=== PATIENT | female | born 1940 | race Caucasian/White ===

== ENCOUNTER 2016-05-26 09:33 | Emergency (ER) | payer MEDICARE, MEDICAID ==
[~2016-05-26] VITALS: Ht 152.4 cm; Wt 54.9 kg
[~2016-05-26 09:33] MED LIST: ALBU6.7H INH; ALEN70TA7 PO; ALPR0.255 PO; ASPI-917 PO; ATOR10TA64 PO; DILT180C51 PO; DIPH25TA25 PO; FLUT12AE16 INH; LEVA0.633 IH; LEVO750T20 PO; METH4TAB3 PO; MULT-1243 PO; OMEP-122 PO; UMEC62.5 INH
[2016-05-26 09:34] VITALS: Ht 152.4 cm; Wt 54.9 kg
--- OUTSIDE RECORDS SUMMARY | 2016-05-26 09:37 | XMS REPORT | Continuity of Care Document ---
Author Author [facility] Organization [facility] Address Unknown Phone Unavailable Support Name Relationship Address Phone ANASTACIA WILHELM MD Caregiver [address] [place] [phone] ALEXSANDRA DOUGLAS MD Caregiver [address] [place] [address] [phone] ANITA GUNDERSON Next Of Kin [address] [place] [address] Insurance Providers Payer Name Policy Number Subscriber Name Relationship Medicare [id number] Marnie Gunderson 18 Self Shawna Dexter [employer] Plan [id number] Marnie Gunderson 18 Self Problems Medical Problems Problem Onset Date Status GASTROENTERITIS,VOMITING Unknown Active Exacerbation COPD Unknown Active Gastroenteritis Unknown Active Vomiting Unknown Active Medications Medication Dose Route Sig Days/Qty Instructions Order Date Discontinued Date Status Salmeterol Xinafoate/Fluticasone 1 Puff INH TWICE A DAY 12/29/0723/02 Discontinued Albuterol 1 Puff INH NEEDED 12/29/07 07/07/12 Discontinued Ipratropium/Albuterol Sulfate 1 Amp INH FOUR TIMES DAILY 12/29/07 Discontinued Lansoprazole 1 Cap PO TWICE A DAY 12/29/07 05/24/10 Discontinued [Xanax0.25 Mg] 1 Tab PO TWICE A DAY 12/29/07 Active Simvastatin 1 Tab PO BEDTIME 12/29/07 07/25/11 Discontinued Sertraline Hcl 0.5 Tab PO DAILY 12/29/07 05/23/10 Discontinued Alendronate Sodium 70 Mg PO WEEKLY 05/23/10 Active Omeprazole 20 Mg PO DAILY 05/23/10 Active Prednisone 20 Mg PO 05/24/10 07/25/11 Discontinued Cefuroxime Axetil 500 Mg PO TWICE A DAY 05/24/10 07/25/11 Discontinued Salmeterol Xinafoate/Fluticasone 1 INH TWICE A DAY 12/14/12 Active Levalbuterol Hcl 0.63 Mg IH THREE TIMES A DAY 12/14/12 Active Diltiazem Hcl 180 Mg PO DAILY 12/14/12 Active Tiotropium [place] 18 Mcg IH DAILY 12/14/12 Active Albuterol Sulfate 2 Puff INH THREE TIMES A DAY For RESPIRATORY DISTRESS 04/15/14 Active Multivits-Min/FA/Lycopene/Lut 04/15/14 Active Aspirin 325 Mg PO DAILY 04/15/14 Active Prednisone 60 Mg PO DAILY 5 Days Take daily each morning 04/15/14 Active Social History Social History Problem Response Recorded Date/Time Chewing Tobacco Status No 04/15/2014 10:46pm Hx Substance Use No 04/15/2014 10:46pm Hx Alcohol Use No 04/15/2014 10:46pm Has the pt used tobacco in the last 12 months No 07/09/2012 12:06pm Tobacco Usage none 04/15/2014 10:31pm Query Response Start Date Stop Date Smoking Status Former smoker Hospital Discharge Instructions No hospital discharge instructions. Plan of Care No plan of care. Functional Status Query Response Date Recorded Physical Hygiene Self April 15, 2014 10:46pm Disabilities None April 15, 2014 10:46pm Devices Used None April 15, 2014 10:46pm Dressing Self April 15, 2014 10:46pm Ambulation Self April 15, 2014 10:46pm Diet Self April 15, 2014 10:46pm Mental Status Alert April 15, 2014 11:47pm Disabilities None April 15, 2014 10:46pm Devices Used None April 15, 2014 10:46pm Physical Hygiene Self April 15, 2014 10:46pm Dressing Self April 15, 2014 10:46pm Ambulation Self April 15, 2014 10:46pm Diet Self April 15, 2014 10:46pm Allergies, Adverse Reactions, Alerts Allergen Type Severity Reaction Status Last Updated escitalopram oxalate Allergy Intermediate RASH Active 04/15/14 Morphine Allergy Severe Active 04/15/14 Codeine Allergy Intermediate SEVERE HEADACHE Active 04/15/14 Propoxyphene Allergy Unknown FEVER, HIVES Active 04/15/14 Acetaminophen Allergy Unknown Active 04/15/14 Immunizations Name Given Type Hx Influenza Vaccination Y dec 2011 Historical Hx Pneumococcal Vaccination Y 2011 ocober Historical Hx Influenza Vaccination Y dec 2011 Historical Vital Signs Acute Vital Signs Vital Response Date/Time Temperature (Fahrenheit) 97.2 deg F (96.8 - 99.1) Temperature (Calculated Celsius) 36.05364 degrees C (36.0 - 37.3) Pulse Rate (adult) 65 bpm (60 - 100) Respiratory Rate 20 breaths/min (10 - 20) O2 Sat by Pulse Oximetry 98 % (90 - 100) Oxygen Flow Rate 4 L/min Blood Pressure 124/69 mm Hg Height 5 ft 0 in Weight 145 lb Body Mass Index 28.0 kg/m^2 Results Test Source Date Result Interp. Ref. Range Comments Alanine Aminotransferase (ALT/SGPT) April 15, 2014 10:53pm 26 U/L N 9 -52 Albumin April 15, 2014 10:53pm 4.1 G/DL N 3.5-5.0 Albumin/Globulin Ratio April 15, 2014 10:53pm 1.6 RATIO N 1.1-2.2 Alkaline Phosphatase April 15, 2014 10:53pm 91 U/L N 38-126 Amylase Level May 11, 2013 10:11am 56 U/L N 30-110 Anion Gap April 15, 2014 10:53pm 9 MEQ/L N 5-15 Arterial Blood Base Excess July 15, 2012 10:25am 10.5 MMOL/L H -2.0-2.0 Arterial Blood HCO3 July 15, 2012 10:25am 36 MEQ/L H 22-26 Arterial Blood Oxygen Content July 15, 2012 10:25am 4 - Arterial Blood Oxygen Saturation July 15, 2012 10:25am 92.0 % L 95.0- 98.0 Arterial Blood Partial Pressure CO2 July 15, 2012 10:25am 49 MMHG H 34- 45 Arterial Blood Total CO2 July 15, 2012 10:25am 37.2 MEQ/L H 23-27 Arterial Blood pH July 15, 2012 10:25am 7.470 H 7.350-7.450 Arterial Blood pO2 at Patient Temp July 15, 2012 10:25am 60 MMHG L 80- 100 Aspartate Amino Transf (AST/SGOT) April 15, 2014 10:53pm 23 U/L N 14- 36 B-Type Natriuretic Peptide December 03, 2010 5:10am 43 PG/ML N 15-100 BUN/Creatinine Ratio April 15, 2014 10:53pm 20 RATIO N 6-26 Band Neutrophils # November 27, 2010 4:35am 0.1 T/MM3 - Band Neutrophils % November 27, 2010 4:35am 1.0 % N 0-6 Basophils # (Auto) April 15, 2014 10:53pm 0.0 T/MM3 N 0-0.2 Basophils # (Manual) July 20, 2008 12:05pm 0.0 T/MM3 N 0-0.2 Basophils % (Manual) July 20, 2008 12:05pm 0.0 % N 0-2 Basophils (%) (Auto) April 15, 2014 10:53pm 0.4 % N 0-2 Blood Urea Nitrogen April 15, 2014 10:53pm 14.0 MG/DL N 7-17 Calcium Level April 15, 2014 10:53pm 9.3 MG/DL N 8.4-10.2 Calculated Osmolality April 15, 2014 10:53pm 269 MOSM/KG N 261-280 Carbon Dioxide Level April 15, 2014 10:53pm 34 MEQ/L H 22-30 Chemistry Specimen Hemolysis April 15, 2014 10:53pm < 15 0-25 0-25 : No Hemolysis.26-70: Slight Hemolysis - can falsely elevate K and Urine Protein. 71-285: Moderate Hemolysis - can falsely elevate K, Troponin I, CA 19-9, PTH, CSF GLucose, and Urine Protein, and can falsely decrease Phenytoin. 286-999: Gross Hemolysis - can falsely elevate K, Troponin I, CA 19-9, PTH, CSF Glucose, and Urine Protine, and can falsely decrease Phenytoin. Recommend specimen recollection. Chloride Level April 15, 2014 10:53pm 96 MEQ/L L 98-107 Conjugated Bilirubin July 07, 2012 5:35pm 0.00 MG/DL N 0.00-0.30 Creatinine April 15, 2014 10:53pm 0.7 MG/DL N 0.7-1.2 D-Dimer July 07, 2012 5:35pm < 150 NG/ML 0-230 <224 NG/ML= PRESUMPTIVE NEGATIVE FOR PE OR DVT>224 NG/ML=ADDITIONAL EVALUATION FOR PE OR DVT RECOMMENDED Differential Total Cells Counted May 25, 2010 5:47am 100 % - EKG November 04, 2007 4:23pm Complete - Eosinophils # (Auto) April 15, 2014 10:53pm 0.1 T/MM3 N 0-0.5 Eosinophils # (Manual) July 20, 2008 12:05pm 0.0 T/MM3 N 0-0.5 Eosinophils % (Manual) July 20, 2008 12:05pm 0.0 % N 0-4 Eosinophils (%) (Auto) April 15, 2014 10:53pm 1.1 % N 0-4 Erythrocyte Sedimentation Rate November 04, 2007 4:22pm 11 MM/HR - COMMENT THIS IS A NEW PT. PLEASE DRAW SOON Ferritin December 17, 2011 5:15am 26.0 NG/ML N 11-264 Globulin April 15, 2014 10:53pm 2.5 G/DL N 2.4-3.6 Glomerular Filtration Rate Calc April 15, 2014 10:53pm 82 - Glucose Level April 15, 2014 10:53pm 107 MG/DL N 65-110 Hematocrit April 15, 2014 10:53pm 33.7 % L 36-46 Hemoglobin April 15, 2014 10:53pm 10.3 GM/DL L 12-16 Icterus Index April 15, 2014 10:53pm < 2 0-7 Immature Granulocyte # (Auto) April 15, 2014 10:53pm 0.02 T/MM3 N 0.00-0.03 Immature Granulocyte % (Auto) April 15, 2014 10:53pm 0.2 % N 0.0-0.5 Influenza Type A Antigen May 24, 2010 12:00am Negative - Negative for Flu A protein antigen. Assay sensitivity isbetween 65-83%. A negative result does not exclude influenza virus infection. "Influenza FA" may be ordered if clinical presentation warrants confirmatory testing. Influenza Type B Antigen May 24, 2010 12:00am Negative - Negative for Flu B protein antigen. Assay sensitivity isbetween 65-83%. A negative result does not exclude influenza virus infection. "Influenza FA" may be ordered if clinical presentation warrants confirmatory testing. Iron Level December 17, 2011 5:15am 27 UG/DL L 37-170 Lab Scanned Report June 02, 2013 4:04pm LAB TEST FORM REQUEST [id number] - Lipase May 11, 2013 10:11am 43 U/L N 23-300 Lymphocytes # (Auto) April 15, 2014 10:53pm 2.5 T/MM3 N 1-4.8 Lymphocytes # (Manual) November 27, 2010 4:35am 0.9 T/MM3 L 1-4.8 Lymphocytes % (Manual) November 27, 2010 4:35am 12.0 % L 23-45 Lymphocytes (%) (Auto) April 15, 2014 10:53pm 29.6 % N 23-45 Magnesium Level July 11, 2012 4:20am 2.1 MG/DL N 1.6-2.3 Mean Corpuscular Hemoglobin April 15, 2014 10:53pm 27.7 UUG N 26-34 Mean Corpuscular Hemoglobin Concent April 15, 2014 10:53pm 30.6 GM/DL L 31-37 Mean Corpuscular Volume April 15, 2014 10:53pm 90.6 UM3 N 80-100 Mean Platelet Volume April 15, 2014 10:53pm 8.9 UM3 L 9.4-12.4 Monocytes # (Auto) April 15, 2014 10:53pm 0.8 T/MM3 N 0-0.8 Monocytes # (Manual) November 27, 2010 4:35am 0.1 T/MM3 N 0-0.8 Monocytes % (Manual) November 27, 2010 4:35am 1.0 % N 0-9.0 Monocytes (%) (Auto) April 15, 2014 10:53pm 10.1 % H 0-9.0 YB-Baw-R-Type Natriuretic Peptide April 15, 2014 10:53pm 189 PG/ML H 0-175 Rule in cut points: <50 years old=450; 50-75 years old=900; >75 years old=1800; When utilizing ProBNP rule-in cut points, adjustment for impaired renal function is typically not required. Neutrophils # (Auto) April 15, 2014 10:53pm 4.9 T/MM3 N 1.8-7.7 Neutrophils # (Manual) November 27, 2010 4:35am 6.4 T/MM3 N 1.8-7.7 Neutrophils % (Manual) November 27, 2010 4:35am 86.0 % H 33-66 Neutrophils (%) (Auto) April 15, 2014 10:53pm 58.6 % N 33-66 Oxygen Delivery Method (LAB) July 15, 2012 10:25am Nasal cannula,liters - Platelet Count April 15, 2014 10:53pm 300 T/MM3 N 130-400 Potassium Level April 15, 2014 10:53pm 3.7 MEQ/L N 3.6-5 Procalcitonin April 15, 2014 10:53pm < 0.05 NG/ML - PCT </=0.5 ng/ mL - sepsis not likely;PCT >0.5 and </=2 ng/mL - sepsis possible; PCT >2 ng/mL - sepsis likely; PCT >/=10 ng/mL - systemic inflammatory response - sepsis or septic shock highly indicated. Prothromb Time International Ratio November 23, 2010 7:45pm 0.99 N 0.86 -1.10 THERAPUTIC RANGE=2.00-3.00 FOR ANTI-THROMBOSIS THERAPUTIC RANGE=2.50- 3.50 FOR IMPLANTED VALVE RDW Standard Deviation April 15, 2014 10:53pm 41.7 FL N 36.9-50.2 Red Blood Count April 15, 2014 10:53pm 3.72 M/MM3 L 4.00-5.20 Sodium Level April 15, 2014 10:53pm 139 MEQ/L N 134-144 Thyroid Stimulating Hormone (TSH) November 04, 2007 4:22pm 1.04 MIU/ML N 0.47-4.68 Thyroxine (T4) November 04, 2007 4:22pm 8.4 UG/DL N 4.5-11.5 Total Bilirubin April 15, 2014 10:53pm 0.40 MG/DL N 0.20-1.30 Total Iron Binding Capacity December 17, 2011 5:15am 245 UG/DL L 261-497 Total Protein April 15, 2014 10:53pm 6.6 G/DL N 6.3-8.2 Troponin I April 15, 2014 10:53pm < 0.012 ng/ml 0-0.12 Turbidity April 15, 2014 10:53pm < 20 0-20 Unconjugated Bilirubin July 07, 2012 5:35pm 0.20 MG/DL N 0.00-1.10 Urinalysis Comment December 14, 2012 1:31pm Microscopic not ind. - Has specimen been collected/obtained? Y Urine Bacteria July 07, 2012 7:45pm Negative - Has specimen been collected/obtained? Y Urine Bilirubin December 14, 2012 1:31pm Negative - Has specimen been collected/obtained? Y Urine Blood December 14, 2012 1:31pm Negative - Has specimen been collected/obtained? Y Urine Collection Type December 14, 2012 1:31pm Cleancatch-midstream - Has specimen been collected/obtained? Y Urine Color December 14, 2012 1:31pm Yellow - Has specimen been collected/obtained? Y Urine Glucose (UA) December 14, 2012 1:31pm Negative - Has specimen been collected/obtained? Y Urine Ketones December 14, 2012 1:31pm Negative - Has specimen been collected/obtained? Y Urine Leukocyte Esterase December 14, 2012 1:31pm Negative - Has specimen been collected/obtained? Y Urine Microscopic Not Indicated December 16, 2011 8:16pm Not indicated - Has specimen been collected/obtained? Y Urine Nitrite December 14, 2012 1:31pm Negative - Has specimen been collected/obtained? Y Urine Protein December 14, 2012 1:31pm Negative - Has specimen been collected/obtained? Y Urine RBC July 07, 2012 7:45pm None seen /HPF - Has specimen been collected/obtained? Y Urine Specific [place] December 14, 2012 1:31pm 1.010 L - Has specimen been collected/obtained? Y Urine Squamous Epithelial Cells July 20, 2008 2:15pm None seen - Urine Turbidity December 14, 2012 1:31pm Clear - Has specimen been collected/obtained? Y Urine Urobilinogen December 14, 2012 1:31pm Normal EU/DL - Has specimen been collected/obtained? Y Urine WBC July 07, 2012 7:45pm None seen /HPF - Has specimen been collected/obtained? Y Urine pH December 14, 2012 1:31pm 7.0 - Has specimen been collected/ obtained? Y Venous Blood Lactate April 15, 2014 10:47pm 0.7 MMOL/L N 0.6-2.2 White Blood Count April 15, 2014 10:53pm 8.3 T/MM3 N 4.5-11.0 Blood Culture Blood December 14, 2012 11:22am NO GROWTH AFTER 5 DAYS Gram Stain Sputum-Expectorated Sputum July 09, 2012 8:50am Name: MARNIE GUNDERSON Unit #: [id number] : 1940 Sex: F Loc / Svc: ED DOS: 04/15/14 Signed Report #: [id number] DIAGNOSTIC IMAGING REPORT TYPE OF EXAM: CHEST, PA & LATERAL Dictated By: DAYNA HOPE MD INDICATION: ITS.REASON: cough, dyspnea CHEST 2-VIEWS UPRIGHT (PA & LAT): COMPARISON: December 14, 2012 Findings: The lungs are stable in appearance without new focal airspace consolidation. There is some chronic scarring in the lower lobes overlying the lower thoracic spine appreciated on the lateral view which appears unchanged. Hyperinflation. There is no pleural effusion or pneumothorax. The heart size, pulmonary vascularity and mediastinal contours are unchanged. IMPRESSION: Stable appearance of the chest without acute cardiopulmonary disease. Hyperinflation suggesting COPD. . Procedures No known history of procedures. Encounters Encounter Location Date/Time Departed Emergency Room [facility] 04/15/14 10:01pm Departed Emergency Room [facility] 02/19/14 5:54pm Recent Diagnosis
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
--- OUTSIDE RECORDS SUMMARY | 2016-05-26 09:38 | XMS REPORT | Continuity of Care Document ---
Author Author [facility] Organization [facility] Address Unknown Phone Unavailable Support Name Relationship Address Phone ERNESTINE ROJAS MD Caregiver [address] [place] [phone] ALEXSANDRA DOUGLAS MD Caregiver [address] [place] [place] [phone] ANITA GUNDERSON (EX) Next Of Kin [address] [place] [address] Insurance Providers Payer Name Policy Number Subscriber Name Relationship Medicare [id number] Marnie Gunderson 18 Self Shawna [place] [employer] Plan [id number] Marnie Gunderson 18 Self Problems Medical Problems Problem Onset Date Status GASTROENTERITIS,VOMITING Unknown Active Exacerbation COPD Unknown Active Gastroenteritis Unknown Active Vomiting Unknown Active Medications Medication Dose Route Sig Days/Qty Instructions Order Date Discontinued Date Status Salmeterol Xinafoate/Fluticasone 1 Puff INH TWICE A DAY 12/29/0723/02 Discontinued Albuterol 1 Puff INH NEEDED 12/29/07 07/07/12 Discontinued Aspirin 325 Mg PO DAILY 12/29/07 Active Ipratropium/Albuterol Sulfate 1 Amp INH FOUR TIMES DAILY 12/29/07 Discontinued Lansoprazole 1 Cap PO TWICE A DAY 12/29/07 05/24/10 Discontinued [Xanax0.25 Mg] 1 Tab PO TWICE A DAY 12/29/07 Active Simvastatin 1 Tab PO BEDTIME 12/29/07 07/25/11 Discontinued Sertraline Hcl 0.5 Tab PO DAILY 12/29/07 05/23/10 Discontinued Calcium Carbonate 1 Tab PO DAILY 05/23/10 Active Alendronate Sodium 70 Mg PO WEEKLY 05/23/10 Active Omeprazole 20 Mg PO DAILY 05/23/10 Active Prednisone 20 Mg PO 05/24/10 07/25/11 Discontinued Cefuroxime Axetil 500 Mg PO TWICE A DAY 05/24/10 07/25/11 Discontinued Tiotropium O[place]olt 18 Mcg IH DAILY HOLD FOR 30 DAYS 07/25/11 Active Prednisone 10 Mg PO DAILY 07/09/12 Active Cefuroxime Axetil 500 Mg PO TWICE A DAY 12/14/12 Active Salmeterol Xinafoate/Fluticasone TWICE A DAY 12/14/12 Active Levalbuterol Hcl 0.63 Mg IH THREE TIMES A DAY 12/14/12 Active Diltiazem Hcl 180 Mg PO DAILY 12/14/12 Active Magnesium 400 Mg PO DAILY 12/14/12 Active Tiotropium [place] 18 Mcg IH DAILY 12/14/12 Active Social History Social History Problem Response Recorded Date/Time Hx Substance Use No 12/14/2012 10:49am Hx Alcohol Use No 12/14/2012 10:49am Has the pt used tobacco in the last 12 months No 07/09/2012 12:06pm Hospital Discharge Instructions No hospital discharge instructions. Plan of Care No plan of care. Functional Status No functional status results. Allergies, Adverse Reactions, Alerts Allergen Type Severity Reaction Status Last Updated escitalopram oxalate Allergy Intermediate RASH Active 12/14/12 Morphine Allergy Severe Active 12/14/12 Codeine Allergy Intermediate SEVERE HEADACHE Active 12/14/12 Propoxyphene Allergy Unknown FEVER, HIVES Active 12/14/12 Immunizations Name Given Type Hx Influenza Vaccination Y dec 2011 Historical Hx Pneumococcal Vaccination Y 2011 ocober Historical Hx Influenza Vaccination Y dec 2011 Historical Vital Signs Acute Vital Signs Vital Response Date/Time Temperature (Fahrenheit) 96.8 deg F (96.8 - 99.1) Temperature (Calculated Celsius) 36.31197 degrees C (36.0 - 37.3) Pulse Rate (adult) 80 bpm (60 - 100) Respiratory Rate 20 breaths/min (10 - 20) O2 Sat by Pulse Oximetry 97 % (90 - 100) Oxygen Flow Rate 4 L/min Blood Pressure 157/68 mm Hg Height (Feet) 5 feet Weight (Kilograms) 62.3 kg Body Mass Index (BMI) 26.0 Results Test Source Date Result Interp. Ref. Range Comments Alanine Aminotransferase (ALT/SGPT) May 11, 2013 10:11am 29 U/L N 9- 52 Albumin May 11, 2013 10:11am 4.2 G/DL N 3.5-5.0 Albumin/Globulin Ratio May 11, 2013 10:11am 1.6 RATIO N 1.1-2.2 Alkaline Phosphatase May 11, 2013 10:11am 78 U/L N 38-126 Amylase Level May 11, 2013 10:11am 56 U/L N 30-110 Anion Gap May 11, 2013 10:11am 9 MEQ/L N 5-15 Arterial Blood Base [...] July 15, 2012 10:25am 7.470 H 7.350-7.450 Aspartate Amino Transf (AST/SGOT) May 11, 2013 10:11am 28 U/L N 14-36 B-Type Natriuretic Peptide December 03, 2010 5:10am 43 PG/ML N 15-100 BUN/Creatinine Ratio May 11, 2013 10:11am 20 RATIO N 6-26 Band Neutrophils # November 27, 2010 4:35am 0.1 T/MM3 - Band Neutrophils % November 27, 2010 4:35am 1.0 % N 0-6 Basophils # (Auto) December 14, 2012 11:22am 0.0 T/MM3 N 0-0.2 Basophils # (Manual) July 20, 2008 12:05pm 0.0 T/MM3 N 0-0.2 Basophils % (Manual) July 20, 2008 12:05pm 0.0 % N 0-2 Basophils (%) (Auto) December 14, 2012 11:22am 0.1 % N 0-2 Blood Urea Nitrogen May 11, 2013 10:11am 16.0 MG/DL N 7-17 Calcium Level May 11, 2013 10:11am 8.8 MG/DL N 8.4-10.2 Calculated Osmolality May 11, 2013 10:11am 272 MOSM/KG N 261-280 Carbon Dioxide Level May 11, 2013 10:11am 33 MEQ/L H 22-30 Chloride Level May 11, 2013 10:11am 99 MEQ/L N 98-107 Conjugated Bilirubin July 07, 2012 5:35pm 0.00 MG/DL N 0.00-0.30 Creatinine May 11, 2013 10:11am 0.8 MG/DL N 0.7-1.2 D-Dimer July 07, 2012 5:35pm < 150 NG/ML 0-230 <224 NG/ML= PRESUMPTIVE NEGATIVE FOR PE OR DVT>224 NG/ML=ADDITIONAL EVALUATION FOR PE OR DVT RECOMMENDED Differential Total Cells Counted May 25, 2010 5:47am 100 % - Eosinophils # (Auto) December 14, 2012 11:22am 0.0 T/MM3 N 0-0.5 Eosinophils # (Manual) July 20, 2008 12:05pm 0.0 T/MM3 N 0-0.5 Eosinophils % (Manual) July 20, 2008 12:05pm 0.0 % N 0-4 Eosinophils (%) (Auto) December 14, 2012 11:22am 0.1 % N 0-4 Erythrocyte Sedimentation Rate November 04, 2007 4:22pm 11 MM/HR - COMMENT THIS IS A NEW PT. PLEASE DRAW SOON Ferritin December 17, 2011 5:15am 26.0 NG/ML N 11-264 Globulin May 11, 2013 10:11am 2.6 G/DL N 2.4-3.6 Glucose Level May 11, 2013 10:11am 107 MG/DL N 65-110 Hematocrit December 14, 2012 11:22am 40.8 % N 36-46 Hemoglobin December 14, 2012 11:22am 13.0 GM/DL N 12-16 Influenza Type A Antigen May 24, 2010 [...] 17, 2011 5:15am 27 UG/DL L 37-170 Lipase May 11, 2013 10:11am 43 U/L N 23-300 Lymphocytes # (Auto) December 14, 2012 11:22am 1.0 T/MM3 N 1-4.8 Lymphocytes # (Manual) November 27, 2010 4:35am 0.9 T/MM3 L 1-4.8 Lymphocytes % (Manual) November 27, 2010 4:35am 12.0 % L 23-45 Lymphocytes (%) (Auto) December 14, 2012 11:22am 10.1 % L 23-45 Magnesium Level July 11, 2012 4:20am 2.1 MG/DL N 1.6-2.3 Mean Corpuscular Hemoglobin December 14, 2012 11:22am 27.6 UUG N 26-34 Mean Corpuscular Hemoglobin Concent December 14, 2012 11:22am 31.9 GM/DL N 31-37 Mean Corpuscular Volume December 14, 2012 11:22am 86.6 UM3 N 80-100 Mean Platelet Volume December 14, 2012 11:22am 8.8 UM3 L 9.4-12.4 Monocytes # (Auto) December 14, 2012 11:22am 0.5 T/MM3 N 0-0.8 Monocytes # (Manual) November 27, 2010 4:35am 0.1 T/MM3 N 0-0.8 Monocytes % (Manual) November 27, 2010 4:35am 1.0 % N 0-9.0 Monocytes (%) (Auto) December 14, 2012 11:22am 5.1 % N 0-9.0 Neutrophils # (Auto) December 14, 2012 11:22am 8.2 T/MM3 H 1.8-7.7 Neutrophils # (Manual) November 27, 2010 4:35am 6.4 T/MM3 N 1.8-7.7 Neutrophils % (Manual) November 27, 2010 4:35am 86.0 % H 33-66 Neutrophils (%) (Auto) December 14, 2012 11:22am 84.4 % H 33-66 Platelet Count December 14, 2012 11:22am 308 T/MM3 N 130-400 Potassium Level May 11, 2013 10:11am 4.2 MEQ/L N 3.6-5 Prothromb Time International Ratio November 23, 2010 7:45pm 0.99 N 0.86 -1.10 THERAPUTIC RANGE=2.00-3.00 FOR ANTI-THROMBOSIS THERAPUTIC RANGE=2.50- 3.50 FOR IMPLANTED VALVE RDW Standard Deviation December 14, 2012 11:22am 40.3 FL N 36.9-50.2 Red Blood Count December 14, 2012 11:22am 4.71 M/MM3 N 4.00-5.20 Sodium Level May 11, 2013 10:11am 141 MEQ/L N 134-144 Thyroid Stimulating Hormone (TSH) November 04, 2007 4:22pm 1.04 MIU/ML N 0.47-4.68 Thyroxine (T4) November 04, 2007 4:22pm 8.4 UG/DL N 4.5-11.5 Total Bilirubin May 11, 2013 10:11am 0.50 MG/DL N 0.20-1.30 Total Iron Binding Capacity December 17, 2011 5:15am 245 UG/DL L 261-497 Total Protein May 11, 2013 10:11am 6.8 G/DL N 6.3-8.2 Troponin I May 11, 2013 10:11am < 0.012 ng/ml 0-0.12 Unconjugated Bilirubin July 07, 2012 5:35pm 0.20 MG/DL N 0.00-1.10 Urine Bacteria July 07, 2012 7:45pm Negative [...] Has specimen been collected/obtained? Y Urine Specific [place] December 14, 2012 1:31pm 1.010 L - [...] - Has specimen been collected/ obtained? Y White Blood Count December 14, 2012 11:22am 9.7 T/MM3 N 4.5-11.0 Chemistry Specimen Hemolysis May 11, 2013 10:11am < 15 0-25 0-25: No Hemolysis.26-70: Slight Hemolysis - can falsely elevate K and Urine Protein. 71-285: Moderate Hemolysis - can falsely elevate K, Troponin I, CA 19-9, PTH, CSF GLucose, and Urine Protein, and can falsely decrease Phenytoin. 286-999: Gross Hemolysis - can falsely elevate K, Troponin I, CA 19-9, PTH, CSF Glucose, and Urine Protine, and can falsely decrease Phenytoin. Recommend specimen recollection. Oxygen Delivery Method (LAB) July 15, 2012 10:25am Nasal cannula,liters - Urinalysis Comment December 14, 2012 1:31pm Microscopic not ind. - Has specimen been collected/obtained? Y Lab Scanned Report June 02, 2013 4:04pm LAB TEST FORM REQUEST [id number] - EKG November 04, 2007 4:23pm Complete - Turbidity May 11, 2013 10:11am < 20 0-20 Glomerular Filtration Rate Calc May 11, 2013 10:11am 71 - Immature Granulocyte # (Auto) December 14, 2012 11:22am 0.02 T/MM3 N 0.00 -0.03 Immature Granulocyte % (Auto) December 14, 2012 11:22am 0.2 % N 0.0-0.5 Arterial Blood pO2 at Patient Temp July 15, 2012 10:25am 60 MMHG L 80- 100 Venous Blood Lactate December 14, 2012 11:22am 1.3 MMOL/L N 0.6-2.2 Procalcitonin December 14, 2012 11:22am < 0.05 NG/ML - PCT </=0.5 ng/ mL - sepsis not likely;PCT >0.5 and </=2 ng/mL - sepsis possible; PCT >2 ng/mL - sepsis likely; PCT >/=10 ng/mL - systemic inflammatory response - sepsis or septic shock highly indicated. Icterus Index May 11, 2013 10:11am < 2 0-7 NA-Awx-B-Type Natriuretic Peptide December 14, 2012 11:22am 327 PG/ML H 0 -175 Rule in cut points: <50 years old=450; 50-75 years old=900; >75 years old=1800; When utilizing ProBNP rule-in cut points, adjustment for impaired renal function is typically not required. Urine Microscopic Not Indicated December 16, 2011 8:16pm Not indicated - Has specimen been collected/obtained? Y Blood Culture Blood December 14, 2012 11:22am NO GROWTH AFTER 5 DAYS Gram Stain Sputum-Expectorated Sputum July 09, 2012 8:50am Procedures No known history of procedures. Encounters Encounter Location Date/Time Departed Emergency Room [facility] 02/19/14 5:54pm Recent Diagnosis
--- OUTSIDE RECORDS SUMMARY | 2016-05-26 09:39 | XMS REPORT | Continuity of Care Document ---
Author Author [facility] Organization [facility] Address Unknown Phone Unavailable Allergies Medications Problems Procedures Results Encounters ACCT No. Visit Date/Time Discharge Status Pt. Type Provider Facility Loc./Unit Complaint [id number] 05/27/2013 10:02:00 05/27/2013 23 :59:59 CLS Outpatient [id number] 05/11/2013 09:10:00 05/11/2013 23 :59:59 CLS Outpatient [id number] 04/03/2013 08:19:00 04/03/2013 23 :59:59 CLS Outpatient [id number] 02/09/2013 09:48:00 02/09/2013 23 :59:59 CLS Outpatient [id number] 01/02/2013 09:00:00 01/02/2013 23 :59:59 CLS Outpatient
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
--- OUTSIDE RECORDS SUMMARY | 2016-05-26 09:39 | XMS REPORT | Referral Summary ---
Author Author [facility], [facility] Address Unknown Phone Unavailable Care Team Providers Care Molding Press Operator Name Role Phone Nancy Lofton Primary Care Physician [phone] Encounter Date(s): 05/02/16 - 05/02/16 [facility] [place] [id number] Discharge Diagnosis: CAP (community acquired pneumonia) Discharge Diagnosis: Requires supplemental oxygen Discharge Diagnosis: CAD (coronary artery disease) Discharge Diagnosis: Gastritis Discharge Diagnosis: COPD, severe Discharge Diagnosis: High cholesterol Discharge Diagnosis: Arthritis Discharge Diagnosis: Lung nodule Discharge Diagnosis: Hypertension Discharge Disposition: 01-Home or Self Care Attending Physician: Alvin Lofton MD Admitting Physician: Alvin Lofton MD Vital Signs Most recent to 1 oldest [Reference Range]: Peripheral Pulse 78 bpm Rate [60-100 bpm] (05/02/16 11:06 AM) Blood Pressure 120/70 mmHg [90-140/60-90 mmHg] (05/02/16 11:06 AM) SpO2 92 % (05/02/16 11:06 AM) Problem List Condition Effective Dates Status [...] Hypertension(Confirm Active ed) Irritable bowel Resolved disease(Confirmed) Lung Active nodule(Confirmed) Osteoporosis(Confirm Resolved ed) Pneumonia(Confirmed) Active COPD, Active severe(Confirmed) Sinus Active infection(Confirmed) Stroke/TIA(Confirmed Active ) Ulcer(Confirmed) Active Allergies, Adverse Reactions, Alerts Substance Reaction Severity Status codeine Active Escitalopram Oxalate Unknown Active morphine Active pravastatin Active propoxyphene Unknown Active hydrochloride simvastatin Active Medications Advair HFA 115 mcg-21 mcg/inh inhalation aerosol See Instructions, INHALE 2 PUFFS BY MOUTH TWICE DAILY, # 12 g, eRx: [facility] ([facility]) [id number], INHALE 2 PUFFS BY MOUTH TWICE DAILY Start Date: 01/31/15 Status: Ordered Aspirin Enteric Coated 325 mg, Oral, Daily, 1 tab, 0 Refill(s) Start Date: 08/16/13 Status: Ordered atorvastatin 10 mg oral tablet See Instructions, TAKE 1 TABLET BY MOUTH EVERY DAY, # 30 tabs, eRx: [facility] ([facility]) [id number] Start Date: 04/16/16 Status: Ordered Benadryl 10 mg, Oral, Daily, 0 Refill(s) Start Date: 04/06/15 Status: Ordered Cardizem CD 180 mg/24 hours oral capsule, extended release See Instructions, TAKE 1 CAPSULE (180MG) BY ORAL ROUTE EVERY DAY, # 90 caps, eRx : [facility] ([facility]) , TAKE 1 CAPSULE (180MG) BY ORAL [...] 30 MINUTES, # 12 unknown unit, eRx: [facility] ([facility]) [id number], (4PK); TAKE 1 TABLET BY MOUTH IN [...] FOUR TIMES DAILY, # 144 mL, eRx: [facility] ([facility]) [id number], USE ONE VIAL PER NEBULIZER FOUR TIMES DAILY Start Date: 05/02/16 Status: Ordered levalbuterol 0.63 mg/3 mL inhalation solution See Instructions, USE ONE VIAL PER NEBULIZER FOUR TIMES DAILY, # 144 mL, eRx: [facility] ([facility]) [id number] Start Date: 04/04/16 Status: Ordered Levaquin 750 mg oral tablet 750 mg 1 tabs, Oral, q24hr, X 6 days, 0 Refill(s) Start Date: 05/01/16 Stop Date: 05/06/16 Status: Ordered Medrol Dosepak 4 mg oral tablet 1 packets, Oral, Once, as directed on package labeling, # 21 tabs, 0 Refill(s) Start Date: 05/01/16 Stop Date: 05/06/16 Status: Ordered PriLOSEC OTC 20 mg oral delayed release tablet See Instructions, 1 TABS ORAL DAILY, # 90 tabs, eRx: [facility] ([facility]) [id number] , 1 TABS ORAL DAILY Start Date: 03/07/15 Status: Ordered ProAir HFA 90 mcg/inh inhalation aerosol See Instructions, 2 PUFFS INHALATION TID,PRN: NEEDED FOR WHEEZING, # 3 unknown unit, eRx: [facility] ([facility]) [id number], 2 PUFFS INHALATION TID,PRN: NEEDED FOR WHEEZING [...] Patient Education Author: Alvin Lofton MD Date: Family Medicine Arthritis, Nonspecific Arthritis is inflammation of a joint. This usually means pain, redness, warmth or swelling are present. One or more joints may be involved. There are a number of types of arthritis. Your caregiver may not be able to tell what type of arthritis you have right away. CAUSES The most common cause of arthritis is the wear and tear on the joint ( osteoarthritis). This causes damage to the cartilage, which can break down over time. The knees, hips, back and neck are most often affected by this type of arthritis. Other types of arthritis and common causes of joint pain include: Sprains and other injuries near the joint. Sometimes minor sprains and injuries cause pain and swelling that develop hours later. Rheumatoid arthritis. This affects hands, feet and knees. It usually affects both sides of your body at the same time. It is often associated with chronic ailments, fever, weight loss and general weakness. Crystal arthritis. Gout and pseudo gout can cause occasional acute severe pain, redness and swelling in the foot, ankle, or knee. Infectious arthritis. Bacteria can get into a joint through a break in overlying skin. This can cause infection of the joint. Bacteria and viruses can also spread through the blood and affect your joints. Drug, infectious and allergy reactions. Sometimes joints can become mildly painful and slightly swollen with these types of illnesses. SYMPTOMS Pain is the main symptom. Your joint or joints can also be red, swollen and warm or hot to the touch. You may have a fever with certain types of arthritis, or even feel overall ill. The joint with arthritis will hurt with movement. Stiffness is present with some types of arthritis. DIAGNOSIS Your caregiver will suspect arthritis based on your description of your symptoms and on your exam. Testing may be needed to find the type of arthritis: Blood and sometimes urine tests. X-ray tests and sometimes CT or MRI scans. Removal of fluid from the joint (arthrocentesis) is done to check for bacteria, crystals or other causes. Your caregiver (or a specialist) will numb the area over the joint with a local anesthetic, and use a needle to remove joint fluid for examination. This procedure is only minimally uncomfortable. Even with these tests, your caregiver may not be able to tell what kind of arthritis you have. Consultation with a specialist (orbitread operator) may be helpful. TREATMENT Your caregiver will discuss with you treatment specific to your type of arthritis. If the specific type cannot be determined, then the following general recommendations may apply. Treatment of severe joint pain includes: Rest. Elevation. Anti-inflammatory medication (for example, ibuprofen) may be prescribed. Avoiding activities that cause increased pain. Only take reie-bfy-tbjnlnd or prescription medicines for pain and discomfort as recommended by your caregiver. Cold packs over an inflamed joint may be used for 10 to 15 minutes every hour. Hot packs sometimes feel better, but do not use overnight. Do not use hot packs if you are diabetic without your caregiver's permission. A cortisone shot into arthritic joints may help reduce pain and swelling. Any acute arthritis that gets worse over the next 1 to 2 days needs to be looked at to be sure there is no joint infection. Long-term arthritis treatment involves modifying activities and lifestyle to reduce joint stress jarring. This can include weight loss. Also, exercise is needed to nourish the joint cartilage and remove waste. This helps keep the muscles around the joint strong. HOME CARE INSTRUCTIONS Do not take aspirin to relieve pain if gout is suspected. This elevates uric acid levels. Only take hagh-trr-daqkllw or prescription medicines for pain, discomfort or fever as directed by your caregiver. Rest the joint as much as possible. If your joint is swollen, keep it elevated. Use crutches if the painful joint is in your leg. Drinking plenty of fluids may help for certain types of arthritis. Follow your caregiver's dietary instructions. Try low-impact exercise such as: Swimming. Water aerobics. Biking. Walking. Morning stiffness is often relieved by a warm shower. Put your joints through regular juwbm-sc-xroecp. SEEK MEDICAL CARE IF: You do not feel better in 24 hours or are getting worse. You have side effects to medications, or are not getting better with treatment. SEEK IMMEDIATE MEDICAL CARE IF: You have a fever. You develop severe joint pain, swelling or redness. Many joints are involved and become painful and swollen. There is severe back pain and/or leg weakness. You have loss of bowel or bladder control. This information is not intended to replace advice given to you by your health care provider. Make sure you discuss any questions you have with your health care provider. Document Released: 04/04/2005 Document Revised: 03/18/2015 Document Reviewed: [employer] Interactive Patient Education 2016 [employer] No follow up information was provided. Extracted from: Title: Office Visit Note Author: Alvin Lofton MD Date: 05/02/16 Assessment/Plan 1.CAD (coronary artery disease) This issue was reviewed, appears stable, and current therapy continued except as mentioned. Appropriate lab was reviewed from the most recent appropriate entry and lab was ordered if needed in the cpoe/nursing orders, and follow up recommended generally in 90 days and no later then six months. 2.COPD, severe This issue was reviewed, appears stable, and current therapy continued except as mentioned. Appropriate lab was reviewed from the most recent appropriate entry and lab was ordered if needed in the cpoe/nursing orders, and follow up recommended generally in 90 days and no later then six months. Has nebulizer at home. 3.Gastritis The patient's issue is nearly or completely resolved. There is no further issues or testing desired by them at this time. 4.High cholesterol This issue was reviewed, appears stable, and current therapy continued except as mentioned. Appropriate lab was reviewed from the most recent appropriate entry and lab was ordered if needed in the cpoe/nursing orders, and follow up recommended generally in 90 days and no later then six months. Arthritis Seeing Dr. Hsu. Hip joint injection offered in [facility] by Dr. Hsu. I suggest that she defer that at this time. CAP (community acquired pneumonia) The patient's issue is nearly or completely resolved. There is no further issues or testing desired by them at this time. Has abx and steroids. The patient's outside physician records were reviewed. Any pertinent outside records, lab, and xrays were also reviewed if available. Hypertension This issue was reviewed, appears stable, [...] been no chest pain, chest pressure, soa/miramontes. Lung nodule We discussed several options for treatment for this condition. The patient declined any changes or other treatments at this time. Consult or Chest CT discussed and declined for now by her. Requires supplemental oxygen This issue was reviewed, appears stable, and current therapy continued except as mentioned. Appropriate lab was reviewed from the most recent appropriate entry and lab was ordered if needed in the cpoe/nursing orders, and follow up recommended generally in 90 days and no later then six months.
--- OUTSIDE RECORDS SUMMARY | 2016-05-26 09:39 | XMS REPORT | Continuity of Care Document ---
Author Author [facility] Organization [facility] Address Unknown Phone Unavailable Support Name Relationship Address Phone JUSTINORTEGA TOMAS Caregiver [address] [place] [address] Unavailable YANIRA TAO MD Caregiver [address] [place] [address] Unavailable BRITTANI CREWS Next Of Kin [address] [place] [address] Insurance Providers Guarantor Allyson Gunderson Address [address] [facility] [address] [place] [address] Email DENIED [address] [facility] Plan Policy Number [id number] Subscriber's Name Allyson Gunderson Relationship 18 Self Effective Date 15 Expiration Date 16 Payer Medicare Policy Number [id number] Subscriber's Name Allyson Gunderson Relationship 18 Self Effective Date 05 Advance Directives Directive Response Recorded Date/Time Advanced Directives Type Living Will DPOA for Healthcare 04/30/16 8:45am Chief Complaint and Reason for Visit Chief Complaint Dyspnea/Respdistress Reason for Visit Pneumonia Problems Active Problems Medical Problem Onset Date Status Contusion of left hand Unknown Acute Contusion of scalp Unknown Acute Dyspnea Unknown Acute Exacerbation COPD Unknown Acute GASTROENTERITIS,VOMITING Unknown Acute Gastroenteritis Unknown Acute Hypoxia Unknown Acute Knee pain, right Unknown Acute Vomiting Unknown Acute Past Problems Medical Problem Onset Date Chronic obstructive airway disease Unknown Pneumonia Unknown Upper respiratory infection Unknown Medications Current Home Medications Medication Dose Units Route Directions Days Qty Instructions Start Date Albuterol Sulfate (Proventil Hfa 90 Mcg/Actuation) 200 Puff/6.7 G Inha 2 Puff Inhalation Four Times Daily as needed for Shortness Of Air/Wheezing 12/25/15 Alendronate Sodium (Fosamax) 70 Mg Tablet 70 Mg Oral Weekly 05/23 Alprazolam 0.25 Mg Tablet 0.25 Mg Oral Twice A Day as needed for Anxiety 06/28/14 Aspirin (Aspirin Ec) 325 Mg Tablet.dr 325 Mg Oral Daily 04/30/16 Atorvastatin Calcium 10 Mg Tablet 10 Mg Oral Bedtime 12/25/15 Diltiazem Hcl (Cartia Xt) 180 Mg Capsule 180 Mg Oral Daily Diphenhydramine Hcl 25 Mg Tablet 25 Mg Oral Bedtime 12/25/15 Fluticasone/Salmeterol (Advair Hfa 115-21 Mcg Inhaler) 12 Gm Hfa.aer.ad 2 Puff Inhalation Twice A Day 05/14/15 Levalbuterol Hcl (Xopenex) 0.63 Mg/3 Ml Solution 1 Vial Inhalation Four Times Daily 12/14/12 Levofloxacin (Levaquin) 750 Mg Tablet 1 Tab Oral Daily for Pneumonia 6 Days 04/30/16 Methylprednisolone (Medrol) 4 Mg Tab.ds.pk 4 Mg Oral As Directed 1 04/30/16 Multivits-Min/Fa/Lycopene/Lut (Centrum Silver Tablet) 1 Each Tablet 1 Tab Oral Qd 04/30/16 Omeprazole 20 Mg Tablet. 20 Mg Oral Daily 06/28/14 Umeclidinium Mckee (Incruse Ellipta) 62.5 Mcg Blst.w.dev 1 Puff Inhalation Daily 12/25/15 Past Home Medications Medication Directions Ordered Status Albuterol 17 Gm Aerosol, 1 Puff Inhalation As Needed 12/29/07 Discontinued Cefuroxime Axetil (Cefuroxime) 500 Mg Tablet, 500 Mg Oral Twice A Day Discontinued Ipratropium/Albuterol Sulfate (Duoneb 2.5-0.5 Mg/3 Ml Soln) 3 Ml Ampul.neb, 1 Amp Inhalation Four Times Daily 12/29/07 Discontinued Lansoprazole (Prevacid) 30 Mg Capsule.dr, 1 Cap Oral Twice A Day 12/29/07 Discontinued Levofloxacin (Levaquin) 750 Mg Tablet, 1 Tab Oral Daily for Pneumonia Discontinued Prednisone 20 Mg Tablet, 60 Mg Oral Daily 04/15/14 Discontinued Prednisone 20 Mg Tablet, 20 Mg Oral 05/24/10 Discontinued Salmeterol Xinafoate/Fluticasone (Advair 250/50) 28 Puff/Disk Inhaler, 1 Puff Inhalation Twice A Day 12/29/07 Discontinued Sertraline Hcl (Zoloft) 50 Mg Tablet, 0.5 Tab Oral Daily 12/29/07 Discontinued Simvastatin (Zocor) 40 Mg Tablet, 1 Tab Oral Bedtime 12/29/07 Discontinued Social History Social History Problem Response Recorded Date/Time Onset Date Status Hx Substance Use No 04/30/2016 11:13am Not Applicable Not Applicable Hx Alcohol Use No 04/30/2016 11:13am Not Applicable Not Applicable Has the pt used tobacco in the last 12 months No 06/28/2014 4:39pm Not Applicable Not Applicable Tobacco Usage none 04/15/2014 10:31pm Not Applicable Not Applicable Query Response Start Date Stop Date Smoking Status Former smoker Hospital Discharge Instructions No hospital discharge instructions. Plan of Care Discharge Date 04/30/16 11:50am Disposition 01 DISCHARGED HOME, SELF-CARE Condition at Discharge Improved Instructions/Education Provided Pneumonia (ED) Prescriptions See Medication Section Referrals YANIRA TAO MD Order Date: 1 Day Address: [address] [place] [address] [place] [phone] Note: Care Plan and Goals Physician Care Plan Problem: 1. Pneumonia 2. Shortness of Breath Goal: 1. Follow up with primary care provider in 1 day for follow-up 2. Continue home medications including Home Oxygen and Nebulizer Treatments 3. Return to the ER with with worsening symptoms Instructions: 1. Take medications and follow care plan as discussed/written Functional Status No functional status results. Allergies, Adverse Reactions, Alerts Allergen Type Severity Reaction Status Last Updated escitalopram oxalate Allergy Intermediate RASH Active 12/25/15 Penicillin Allergy Unknown Active 12/25/15 Morphine Allergy Severe Active 12/25/15 Codeine Allergy Intermediate SEVERE HEADACHE Active 12/25/15 Propoxyphene Allergy Unknown FEVER, HIVES Active 12/25/15 Acetaminophen Allergy Unknown Active 12/25/15 Immunizations Query Response on File Recorded Date/Time Hx Influenza Vaccination Y 201306/30/14 2:58am Hx Pneumococcal Vaccination Y 201106/30/14 2:58am Hx Tetanus, Diptheria, Pertussis UNKNOWN 06/28/14 1:33pm Hx Influenza Vaccination Y 201306/30/14 2:58am Hx Tetanus Diptheria UNKNOWN 06/28/14 1:33pm Hx Tetanus, Diptheria, Pertussis UNKNOWN 06/28/14 1:33pm DTaP Vaccine History 201404/30/16 11:13am Influenza Vaccine Hx 201504/30/16 11:13am Vital Signs Acute Vital Signs Vital Response Date/Time Temperature (Fahrenheit) 98.4 deg F (96.8 - 99.1) 04/30/2016 11:50am Temperature (Calculated Celsius) 36.09844 degrees C (36.0 - 37.3) 04/30/2016 11:50am Pulse Rate (adult) 68 bpm (60 - 100) 04/30/2016 11:50am Respiratory Rate 20 breaths/min (10 - 20) 04/30/2016 11:50am O2 Sat by Pulse Oximetry 100 % (90 - 100) 04/30/2016 11:50am Oxygen Flow Rate 5.00 L/min 04/30/2016 11:50am Blood Pressure 135/61 mm Hg 04/30/2016 11:50am Height (Feet) 5 feet 04/30/2016 8:45am Height (Inches) 0 inches 04/30/2016 8:45am Weight (Kilograms) 54.400 kg 04/30/2016 8:45am Body Mass Index (BMI) 23.0 04/30/2016 8:45am Results Laboratory Results Test Name Result Units Flags Reference Collection Date/Time Result Date/ Time Comments White Blood Count 6.8 T/MM3 4.5-11.0 04/30/2016 9:47am 04/30/2016 10: 00am Red Blood Count 3.66 M/MM3 L 4.00-5.20 04/30/2016 9:47am 04/30/2016 10: 00am Hemoglobin 10.1 GM/DL L 12-16 04/30/2016 9:47am 04/30/2016 10:00am Hematocrit 33.3 % L 36-46 04/30/2016 9:47am 04/30/2016 10:00am Mean Corpuscular Volume 91.0 UM3 80-100 04/30/2016 9:47am 04/30/2016 10 :00am Mean Corpuscular Hemoglobin 27.6 UUG 26-34 04/30/2016 9:47am 2016 10:00am Mean Corpuscular Hemoglobin Concent 30.3 GM/DL L 31-37 04/30/2016 9:47am 04/30/2016 10:00am RDW Standard Deviation 41.5 FL 36.9-50.2 04/30/2016 9:47am 04/30/2016 10:00am Platelet Count 289 T/MM3 130-400 04/30/2016 9:47am 04/30/2016 10:00am Mean Platelet Volume 8.7 UM3 L 9.4-12.4 04/30/2016 9:47am 04/30/2016 10: 00am Neutrophils % (Manual) 64.0 % 33-66 04/30/2016 9:47am 04/30/2016 10: 21am Band Neutrophils % 5.0 % 0-6 04/30/2016 9:47am 04/30/2016 10:21am Lymphocytes % (Manual) 28.0 % 23-45 04/30/2016 9:47am 04/30/2016 10: 21am Monocytes % (Manual) 1.0 % 0-9.0 04/30/2016 9:47am 04/30/2016 10:21am Eosinophils % (Manual) 2.0 % 0-4 04/30/2016 9:47am 04/30/2016 10:21am Band Neutrophils # 0.3 T/MM3 04/30/2016 9:47am 04/30/2016 10:21am Absolute Neutrophils (Manual) 4.4 T/MM3 1.8-7.7 04/30/2016 9:47am 04/30 10:21am Lymphocytes # (Manual) 1.9 T/MM3 1-4.8 04/30/2016 9:47am 04/30/2016 10: 21am Monocytes # (Manual) 0.1 T/MM3 0-0.8 04/30/2016 9:47am 04/30/2016 10: 21am Eosinophils # (Manual) 0.1 T/MM3 0-0.5 04/30/2016 9:47am 04/30/2016 10: 21am Red Cell Morphology Comment NORMAL 04/30/2016 9:47am 04/30/2016 10: 21am Icterus Index < 2 0-7 04/30/2016 9:47am 04/30/2016 10:04am Chemistry Specimen Hemolysis < 15 0-25 04/30/2016 9:47am 04/30/2016 10:04am 0-25: Specimen Exhibited No Hemolysis. Turbidity < 20 0-20 04/30/2016 9:47am 04/30/2016 10:04am Sodium Level 133 MEQ/L L 134-144 04/30/2016 9:47am 04/30/2016 10:04am Potassium Level 3.6 MEQ/L 3.6-5 04/30/2016 9:47am 04/30/2016 10:04am Chloride Level 99 MEQ/L 98-107 04/30/2016 9:47am 04/30/2016 10:04am Carbon Dioxide Level 31 MEQ/L H 22-30 04/30/2016 9:47am 04/30/2016 10: 04am Anion Gap 3 MEQ/L L 5-15 04/30/2016 9:47am 04/30/2016 10:04am Blood Urea Nitrogen 13.0 MG/DL 7-17 04/30/2016 9:47am 04/30/2016 10: 04am Creatinine 0.5 MG/DL L 0.7-1.2 04/30/2016 9:47am 04/30/2016 10:04am BUN/Creatinine Ratio 26 RATIO 6-26 04/30/2016 9:47am 04/30/2016 10: 04am Glomerular Filtration Rate Calc 120 04/30/2016 9:47am 04/30/2016 10 :04am Glucose Level 103 MG/DL 65-110 04/30/2016 9:47am 04/30/2016 10:04am Calculated Osmolality 256 MOSM/KG L 261-280 04/30/2016 9:47am 2016 10:04am Calcium Level 8.4 MG/DL 8.4-10.2 04/30/2016 9:47am 04/30/2016 10:04am Troponin I < 0.012 ng/ml 0-0.12 04/30/2016 9:47am 04/30/2016 10:16am Troponin values with a difference of 55% increase from orginal troponin value represent a true biological DELTA value. (%increase Calc=Orginal Troponin value, divided by subsequent Troponin value, multiplied by 100) Name: ALLYSON GUNDERSON Unit #: [id number] : 1940 Sex: F Admit Date: Loc / Svc: ED Discharge Date: DIAGNOSTIC IMAGING REPORT Report #: [id number] [facility] [place] INDICATION: ITS.REASON: cough PROCEDURE: CHEST 2-VIEWS UPRIGHT (PA \T\ LAT) Encounter: Initial COMPARISON: Portable chest radiographs from 05/14/2015 and 06/28/2014 FINDINGS: A 15 mm left upper lobe pulmonary nodule with adjacent linear density has developed since the reference examinations. There is patchy alveolar opacity in the right base posterior laterally. Pulmonary hyperaeration indicative of an element of COPD. Small left lower lobe calcified granuloma. Pleural spaces clear. Heart unenlarged. No pulmonary vascular engorgement. Trachea midline. Degenerative changes of the spine and surgical clips of cholecystectomy. IMPRESSION: 1. Emergence of a 15 mm pulmonary nodule in left upper lobe; CT recommended. 2. Right lower lobe pneumonic infiltrate, consistent with pneumonia. 3. Evidence of underlying chronic obstructive pulmonary disease. 2. Evidence of prior infectious granulomatous disease. . Procedures No known history of procedures. Encounters Encounter Location Arrival/Admit Date Discharge/Depart Date Attending Provider Departed Emergency Room [facility] 04/30/16 8:41am 04/30/16 11: 50am ORTEGA ANDERSON DO Recent Diagnosis
--- OUTSIDE RECORDS SUMMARY | 2016-05-26 09:40 | XMS REPORT | Referral Summary ---
Author Author [facility] Organization [facility] Address Unknown Phone Unavailable Care Team Providers Care Lodging House Keeper Name Role Phone Kirsty Nancy Primary Care Physician [phone] Encounter VC Date(s): 04/19/16 - 04/19/16 [facility] [place] [address] Discharge Diagnosis: Redness of left eye Discharge Disposition: 01-Home or Self Care Attending Physician: Conchita Recinos PA-C Admitting Physician: Conchita Recinos PA-C Vital Signs Most recent to 1 oldest [Reference Range]: Temperature Tympanic 36.4 degC [36.6-38.1 degC] *LOW* (04/19/16 9:06 AM) Peripheral Pulse 73 bpm Rate [60-100 bpm] (04/19/16 9:06 AM) Blood Pressure 154/80 mmHg [90-140/60-90 mmHg] *HI* (04/19/16 9:06 AM) SpO2 100 % (04/19/16 9:06 AM) Problem List Condition Effective Dates Status [...] MOUTH TWICE DAILY, # 12 g, eRx: [facility] [id number], INHALE 2 PUFFS BY MOUTH TWICE DAILY Start Date: 01/31/15 Status: Ordered Aspirin Enteric Coated 325 mg, Oral, Daily, 1 tab, 0 Refill(s) Start Date: 08/16/13 Status: Ordered atorvastatin 10 mg oral tablet See Instructions, TAKE 1 TABLET BY MOUTH EVERY DAY, # 30 tabs, eRx: [facility] [id number] Start Date: 04/16/16 Status: Ordered Benadryl 10 mg, Oral, Daily, 0 Refill(s) Start Date: 04/06/15 Status: Ordered Cardizem CD 180 mg/24 hours oral capsule, extended release See Instructions, TAKE 1 CAPSULE (180MG) BY ORAL ROUTE EVERY DAY, # 90 caps, eRx : Carena [id number], TAKE 1 CAPSULE (180MG) BY ORAL ROUTE [...] 30 MINUTES, # 12 unknown unit, eRx: [facility] [id number], (4PK); TAKE 1 TABLET BY MOUTH IN [...] FOUR TIMES DAILY, # 144 mL, eRx: [facility] [id number] Start Date: 04/04/16 Status: Ordered PriLOSEC OTC 20 mg oral delayed release tablet See Instructions, 1 TABS ORAL DAILY, # 90 tabs, eRx: [facility] [id number] , 1 TABS ORAL DAILY Start Date: 03/07/15 Status: Ordered ProAir HFA 90 mcg/inh inhalation aerosol See Instructions, 2 PUFFS INHALATION TID,PRN: NEEDED FOR WHEEZING, # 3 unknown unit, eRx: [facility] [id number], 2 PUFFS INHALATION TID,PRN: NEEDED FOR WHEEZING [...] Plan Extracted from: Title: Office Visit Note- L red eye Author: Conchita Recinos PA-C Date : 04/19/16 Assessment/Plan Redness of left eye My suspicion is a subconjunctival hemorrhage or hyphema, however, given her pain and vision changes, I would like her to see her household cook today. Sees Dr. Juan Alston. I called his office, and he is not in, but the gas meter repair supervisor is going to call him to see if he will come in to the office to see her. Dr. Alston actually called me personally, and I discussed the case with him. He will see her this AM in office. Ordered: Office Visit Level 3 Est [id number]
--- NOTE | 2016-05-26 09:48 | NUR ---
DR DR NORIEGA IN ROOM.
[2016-05-26] MEDS ORDERED: NORMAL SALINE 1,000 ML IV ONE (09:57)
[2016-05-26] MEDS ORDERED: ASPIRIN 81 MG CHEWABLE TABLET PO ONE (10:00)
[2016-05-26] MEDS ORDERED: NITROGLYCERIN 0.4 MG SUBLINGUAL TABLET SL PRN (10:00)
[2016-05-26] MEDS ORDERED: FLUT16SP EA NOSTRIL (10:01)
[2016-05-26] MEDS ORDERED: CYAN10006 IM (10:01)
--- OUTSIDE RECORDS SUMMARY | 2016-05-26 10:11 | XMS REPORT | Continuity of Care Document ---
Author Author [facility] Organization [facility] Address Unknown Phone Unavailable Support Name Relationship Address Phone ANASTACIA WILHELM MD Caregiver [address] [place] [phone] ALEXSANDRA DOUGLAS MD Caregiver [address] [place] [address] [phone] ANITA GUNDERSON Next Of Kin [address] [place] [address] Insurance Providers Payer Name Policy Number Subscriber Name Relationship Medicare [id number] Marnie Gunderson 18 Self Shawna [employer] Plan [id number] Marnie Gunderson 18 Self Problems Medical Problems [...] 180 Mg PO DAILY 12/14/12 Active Tiotropium [place] 18 Mcg IH DAILY 12/14/12 Active Albuterol [...] F (96.8 - 99.1) Temperature (Calculated Celsius) 36.38361 degrees C (36.0 - 37.3) Pulse Rate [...] 02, 2013 4:04pm LAB TEST FORM REQUEST [id number] - Lipase May 11, 2013 10:11am 43 [...] 15, 2014 10:53pm 10.1 % H 0-9.0 UY-Lxe-F-Type Natriuretic Peptide April 15, 2014 10:53pm 189 [...] Has specimen been collected/obtained? Y Urine Specific [place] December 14, 2012 1:31pm 1.010 L - [...] 2012 8:50am Name: MARNIE GUNDERSON Unit #: [id number] : 1940 Sex: F Loc / Svc: ED DOS: 04/15/14 Signed Report #: [id number] DIAGNOSTIC IMAGING REPORT TYPE OF EXAM: CHEST, [...] Encounters Encounter Location Date/Time Departed Emergency Room [facility] 04/15/14 10:01pm Departed Emergency Room [facility] 02/19/14 5:54pm Recent Diagnosis
--- OUTSIDE RECORDS SUMMARY | 2016-05-26 10:12 | XMS REPORT | Continuity of Care Document ---
Author Author [facility] Organization [facility] Address Unknown Phone Unavailable Support Name Relationship Address Phone ERNESTINE ROJAS MD Caregiver [address] [phone] ALEXSANDRA DOUGLAS MD Caregiver [address] [place] [phone] ANITA GUNDERSON (EX) Next Of Kin [address] [place] [address] Insurance Providers Payer Name Policy Number Subscriber Name Relationship Medicare [id number] Marnie Gunderson 18 Self Shawna [employer] Plan [id number] Marnie Gunderson 18 Self Problems Medical Problems [...] TWICE A DAY 05/24/10 07/25/11 Discontinued Tiotropium [place] 18 Mcg IH DAILY HOLD FOR 30 DAYS 07/25/11 Active Prednisone 10 Mg PO DAILY 07/09/12 Active Cefuroxime Axetil 500 Mg PO TWICE A DAY 12/14/12 Active Salmeterol Xinafoate/Fluticasone TWICE A DAY 12/14/12 Active Levalbuterol Hcl 0.63 Mg IH THREE TIMES A DAY 12/14/12 Active Diltiazem Hcl 180 Mg PO DAILY 12/14/12 Active Magnesium 400 Mg PO DAILY 12/14/12 Active Tiotropium [place] 18 Mcg IH DAILY 12/14/12 Active Social [...] F (96.8 - 99.1) Temperature (Calculated Celsius) 36.11249 degrees C (36.0 - 37.3) Pulse Rate [...] Has specimen been collected/obtained? Y Urine Specific [place] December 14, 2012 1:31pm 1.010 L - [...] 02, 2013 4:04pm LAB TEST FORM REQUEST [id number] - EKG November 04, 2007 4:23pm Complete [...] May 11, 2013 10:11am < 2 0-7 TS-Krm-K-Type Natriuretic Peptide December 14, 2012 11:22am 327 [...] Encounters Encounter Location Date/Time Departed Emergency Room [facility] 02/19/14 5:54pm Recent Diagnosis
--- NOTE | 2016-05-26 10:13 | NUR ---
STATUS PT STATES PAIN IS UNCHANGED, PT LIFTS R ARM ACROSS CHEST AND REACHES TO LEFT AND REPORTS SAME PAIN.
--- OUTSIDE RECORDS SUMMARY | 2016-05-26 10:13 | XMS REPORT | Continuity of Care Document ---
Author Author [facility] Organization [facility] Address Unknown Phone Unavailable Allergies Medications Problems Procedures Results Encounters ACCT No. Visit Date/Time Discharge Status Pt. Type Provider Facility Loc./Unit Complaint [id number] 05/27/2013 10:02:00 05/27/2013 23 :59:59 CLS Outpatient [id number] 05/11/2013 09:10:00 05/11/2013 23 :59:59 CLS Outpatient [id number] 04/03/2013 08:19:00 04/03/2013 23 :59:59 CLS Outpatient [id number] 02/09/2013 09:48:00 02/09/2013 23 :59:59 CLS Outpatient [id number] 01/02/2013 09:00:00 01/02/2013 23 :59:59 CLS Outpatient
--- NOTE | 2016-05-26 10:14 | NUR ---
RT IN ROOM FOR TX.
[2016-05-26] MEDS ORDERED: ALBUTEROL/IPRATROPIUM INHAL. 2.5mg-0.5mg/3ml Neb. AEROSOL ONE (10:15)
--- NOTE | 2016-05-26 10:16 | NUR ---
STATUS REPORTED PAIN UNCHANGED AFTER [address] NORIEGA. REPORTED PTS MOVEMENT OF ARM TO EILICIT PAIN. PER DR NORIEGA, NO NEED TO CONTINUE ADDITIONAL NITRO.
[2016-05-26 10:17] LABS: HCT - HEMATOCRIT 32.3 % (36-46); HGB - HEMOGLOBIN 10.2 GM/DL (12-16); MEAN CORPUSCULAR HGB 27.9 UUG (26-34); MEAN CORPUSCULAR HGB CONC(MCHC 31.6 GM/DL (31-37); MEAN CORPUSCULAR VOLUME 88.5 UM3 (80-100); MEAN PLATELET VOLUME 8.9 UM3 (9.4-12.4); RED BLOOD COUNT 3.65 M/MM3 (4.00-5.20); WBC - WHITE BLOOD COUNT 9.4 T/MM3 (4.5-11.0)
--- NOTE | 2016-05-26 10:17 | ERPDOC ---
Departure Disposition Decision Date: May 26, 2016 Disposition Decision Time: 13:32 Disposition: 01 DISCHARGED HOME, SELF-CARE Impression Impression Impression: Primary Impression: Hypokalemia Additional Impression: Reactive airway disease Severity: Moderate Condition: Stable Seen By: Physician only Referrals: YANIRA TAO MD (Family) Patient Instructions: Noncardiac Chest Pain (ED) Problems/Meds/Labs Reviewed?: Yes Medications reviewed and manag: Yes Additional Instructions: K-Dur 20 mEq, 1 tab daily for 7 days. See your primary care provider on Saturday or Saturday for repeat potassium lab. Change dose of K-Dur as requested by your provider. Follow up care ordered?: Yes Mental Status: Alert Scripts Potassium Chloride (Potassium Chloride) 20 Meq Tablet.er 20 MEQ PO WB for 7 Days, #7 TAB Take 1 tablet, by mouth, daily with breakfast. Prov: JOSE NORIEGA MD 05/26/16 HPI - Chest Pain General Chief Complaint: Chest Pain Stated Complaint: RIGHT ARM HURTS, RIGHT LUNG HURTS WHEN BREATHING I Time Seen by Provider: 09:57 HPI - Chest Pain Initial Comments 75-year-old female with right sided chest and arm pain. Patient has history of COPD, is "end-stage". She uses Xopenex multiple times daily in order to breathe. Over the last 2 nights she has developed some tightness on the right side of her chest with difficulty on deep breathing. Pain radiates up into her right arm and neck. No other complaints or involvement. She does feel like she has worsening shortness of breath, just finished a gastroenteritis infection and is concerned that it may be traversing into her lung. No fever or chills, no nausea vomiting, nor diarrhea. Aspirin Treatment Today: 81 mg x 4 Allergies: Coded Allergies: morphine (Verified Allergy, Severe, 05/26/16) codeine (Verified Allergy, Intermediate, SEVERE HEADACHE, 05/26/16) escitalopram oxalate (Verified Allergy, Intermediate, RASH, 05/26/16) Penicillins (Verified Allergy, Unknown, 05/26/16) acetaminophen (Verified Allergy, Unknown, 05/26/16) propoxyphene (Verified Allergy, Unknown, FEVER, HIVES, 05/26/16) Past History Past Medical History Metabolic: hypercholesterolemia, hypertension ENMT: allergies Cardiac: CAD, CHF, DE Respiratory: COPD, asthma, pneumonia GI: GERD, other Neurological: TIA Musculoskeletal: osteoarthritis Surgical History General: EGD, appendix, gallbladder, other Cardiac: cardiac cath, cardiac stent Reproductive/: , hysterectomy Family History Family PMH: FOUND: COPD, DE, cancer, diabetes Vaccines Hx Influenza Vaccination: Yes (2013) Hx Pneumococcal Vaccination: Yes (2011) Social History Does patient use chewing tobac: No Second Hand Exposure: No Substance Use Type: does not use Alcohol Intake: none Service: No Occupational Hazard: No Advance Directives: Yes Full Code Record Review Pertinent history updated: Yes Review of Systems Constitutional Constitutional: see HPI Cardiovascular Cardiac: see HPI Pulmonary Respiratory: see HPI GI Upper Abdomen: see HPI Lower Abdomen: see HPI All other Systems All Other Systems: Reviewed and Negative Physical Exam General General Nourishment: well nourished, well developed, appears stated age Distress Description Obvious dyspnea. Vitals and Pain First Documented Vital Signs Date Time Temp Pulse Resp B/P Pulse Ox O2 Delivery O2 Flow Rate FiO2 05/26/16 09:34 98.0 76 24 170/72 100 Nasal Cannula 5.00 Weight: Kilograms: 54.900 Height (feet): 5 Height (inches): 0 Triage Pain Scale: Normal Exams: Head: Normocephalic w/o trauma Eyes: Pupils are PERRLA w/ EOMI, No scleral icterus, irritation, or foreign bodies noted Neck: Full range of motion, without adenopathy, JVD, bruits or thyromegaly CV: Regular rate and rhythm, without murmur or gallop, Pulses 2+ all extremities, capillary refill, <2 seconds all ext., no pedal edema noted Abdomen: Bowel sounds positive, soft, non-tender, non-distended, no hepatosplenomegaly, masses or bruits noted Neurologic: Patient is alert, and oriented, cranial nerves, motor/sensory/ cerebellar, exams w/o gross deficits, to observation Psychiatric: Patient exhibits, appropriate attention, emotion and affect Respiratory (brief) Comments Wheezes bilateral bases, poor air movement. Some actual crackles heard bilaterally as well. Differential Diagnoses Considering: Acute DE, Angina, Aortic Dissection, Costochondritis, Esophageal Spasm, Pericarditis, Pleurisy, Pneumothorax, Pneumonia, Pulmonary Edema, Pulmonary Embolus Progress Results/Orders Orders Procedure Category Date Status Time Cbc W/Auto LAB 05/26/16 Complete Diff-Reflex Manual 09:57 Cmp - Comprehensive LAB 05/26/16 Complete Metabolic 09:57 Probnp LAB 05/26/16 Complete 09:57 Troponin I W LAB 05/26/16 Complete Hemolysis Index 09:57 INR LAB 05/26/16 Complete 09:57 Ua, Dip Wreflex LAB 05/26/16 Complete Microsc & Seed Pelleter 09:57 D-Dimer LAB 05/26/16 Complete 09:57 EKG EKG 05/26/16 Taken 09:57 Chest, Pa & Lateral RAD 05/26/16 Taken 09:57 Iv Lock (Ed Only) EDM 05/26/16 Transmitted 09:57 Normal Saline (Normal PHA 05/26/16 Complete Saline Iv) 09:57 Aspirin (Asa) PHA 05/26/16 Complete 10:00 Nitroglycerin PHA 05/26/16 In Process (Nitrostat) 10:00 Albuterol/Ipratropium PHA 05/26/16 Complete (Duoneb) 10:15 Potassium Chloride PHA 05/26/16 Complete (Kdur) 10:[address] 05/26/16 Taken 10:42 Potassium Chloride PHA 05/26/16 Complete (Kdur) 11:15 Acetaminophen PHA 05/26/16 Complete (Tylenol Extra 11:15 Iohexol (Omnipaque) PHA 05/26/16 Complete 11:08 Normal Saline (Ns) PHA 05/26/16 Complete 11:08 Saline Flush (Iv PHA 05/26/16 Complete Flush) 11:08 Lab Results Laboratory Tests Test 05/26/16 09:58 05/26/16 11:00 White Blood Count 9.4T/MM3 Red Blood Count 3.65M/MM3 Hemoglobin 10.2GM/DL Hematocrit 32.3% Mean Corpuscular Volume 88.5UM3 Mean Corpuscular Hemoglobin 27.9UUG Mean Corpuscular Hemoglobin Concent 31.6GM/DL RDW Standard Deviation 38.6FL Platelet Count 324T/MM3 Mean Platelet Volume 8.9UM3 Immature Granulocyte % (Auto) % Neutrophils (%) (Auto) % Lymphocytes (%) (Auto) % Monocytes (%) (Auto) % Eosinophils (%) (Auto) % Basophils (%) (Auto) % Absolute Immature Granulocyte (auto T/MM3 Absolute Neutrophils (auto) T/MM3 Absolute Lymphocytes (auto) T/MM3 Absolute Monocytes (auto) T/MM3 Absolute Eosinophils (auto) T/MM3 Absolute Basophils (auto) T/MM3 Neutrophils % (Manual) 72.0% Lymphocytes % (Manual) 21.0% Monocytes % (Manual) 5.0% Eosinophils % (Manual) 1.0% Metamyelocytes % 1.0% Absolute Neutrophils (Manual) 6.8T/MM3 Lymphocytes # (Manual) 2.0T/MM3 Monocytes # (Manual) 0.5T/MM3 Eosinophils # (Manual) 0.1T/MM3 Metamyelocytes # 0.1T/MM3 Red Cell Morphology Comment Normal Prothromb Time International Ratio 1.09 D-Dimer 280NG/ML Turbidity < 20 Sodium Level 143MEQ/L Potassium Level 2.8MEQ/L Chloride Level 99MEQ/L Carbon Dioxide Level 33MEQ/L Anion Gap 11MEQ/L Blood Urea Nitrogen 6.0MG/DL Creatinine 0.5MG/DL Glomerular Filtration Rate Calc 120 BUN/Creatinine Ratio 12RATIO Glucose Level 103MG/DL Calculated Osmolality 273MOSM/KG Calcium Level 8.7MG/DL Total Bilirubin 0.50MG/DL Icterus Index < 2 Aspartate Amino Transf (AST/SGOT) 24U/L Alanine Aminotransferase (ALT/SGPT) 32U/L Alkaline Phosphatase 63U/L Troponin I 0.012ng/ml MX-Ani-C-Type Natriuretic Peptide 355PG/ML Total Protein 6.3G/DL Albumin 3.5G/DL Globulin 2.8G/DL Albumin/Globulin Ratio 1.3RATIO Chemistry Specimen Hemolysis < 15 Urine Collection Type Voided-not cc-midstr Urine Color Yellow Urine Turbidity Sl cloudy Urine pH 6.0 Urine Specific [place] <=1.005 Urine Protein Negative Urine Glucose (UA) Negative Urine Ketones Negative Urine Blood Trace-intact Urine Nitrite Negative Urine Bilirubin Negative Urine Urobilinogen 0.2EU/DL Urine Leukocyte Esterase Negative Urinalysis Comment Microscopic not ind. Medications Current ED Medications Sodium Chloride (Normal Saline IV) 1,000 ml @ 500 mls/hr Q2H ONCE IV Last administered on 05/26/16t 10:14; Start 05/26/16 at 09:57; Stop 05/26/16 at 11:56 ; Status DC Aspirin (ASA) 324 mg O ONCE PO ; Start 05/26/16 at 10:00; Stop 05/26/16 at 10: 01; Status DC Nitroglycerin (Nitrostat) 0.4 mg Q5MIN PRN SL CHEST PAIN Last administered on 10:07; Start 05/26/16 at 10:00 Albuterol/ Ipratropium (Duoneb) 3 ml O ONCE AEROSOL Last administered on 10:15; Start 05/26/16 at 10:15; Stop 05/26/16 at 10:16; Status DC Potassium Chloride (Kdur) 40 meq O ONCE PO ; Start 05/26/16 at 10:45; Stop at 11:07; Status DC Potassium Chloride (Kdur) 40 meq O ONCE PO Last administered on 05/26/16 11: 52; Start 05/26/16 at 11:15; Stop 05/26/16 at 11:16; Status DC Acetaminophen (Tylenol Extra Strength) 1,000 mg O ONCE PO Last administered on 05/26/16 11:10; Start 05/26/16 at 11:15; Stop 05/26/16 at 11:16; Status DC Iohexol 1 bottle 1 bottle STK-MED ONCE .ROUTE ; Start 05/26/16 at 11:08; Stop at 11:09; Status DC Sodium Chloride (NS) 100 ml @ As Directed STK-MED ONCE .ROUTE ; Start 05/26/16 at 11:08; Stop 05/26/16 at 11:09; Status DC Sodium Chloride (Iv Flush) 10 ml STK-MED ONCE .ROUTE ; Start 05/26/16 at 11:08; Stop 05/26/16 at 11:09; Status DC Progress Progress White count returns normal, sepsis markers are negative, chest x-ray is negative , CT PE shows left upper lobe nodule possible neoplasm. Potassium was low at 2.8 , patient was given 40 mEq of potassium oral. She is definitely feeling better at this time. I would have her follow-up with her primary care provider on Saturday to recheck potassium. She'll be discharged on 20 mEq daily until she sees her PCP and has labs drawn. Breathing improved with respiratory treatment. We discussed the mass in the left upper lobe. Patient is aware of it, she feels like she is not a candidate for surgery right now and cannot worry about it. We did discuss the risk of pneumonia when there is a mass in the lung. That she needs to be aware of this and she is feeling worse she needs to be seen immediately. JOSE NORIEGA MD May 26, 2016 10:17
[2016-05-26 10:22] LABS: INR 1.09 (0.76-1.04); PROTHROMBIN TIME 11.9 SEC (9.31-12.49)
[2016-05-26 10:25] LABS: ALBUMIN 3.5 G/DL (3.5-5.0); ALBUMIN/GLOBULIN RATIO 1.3 RATIO (1.1-2.2); ALKALINE PHOSPHATASE 63 U/L (38-126); ALT (SGPT) 32 U/L (9-52); ANION GAP 11 MEQ/L (5-15); AST (SGOT) 24 U/L (14-36); BUN/CREATININE RATIO 12 RATIO (6-26); CALCIUM 8.7 MG/DL (8.4-10.2); CHLORIDE 99 MEQ/L (98-107); CO2 - CARBON DIOXIDE 33 MEQ/L (22-30); CREATININE 0.5 MG/DL (0.7-1.2); GLOMERULAR FILTRATION RATE 120; GLUCOSE 103 MG/DL (65-110); SODIUM 143 MEQ/L (134-144); TOTAL PROTEIN 6.3 G/DL (6.3-8.2)
--- NOTE | 2016-05-26 10:29 | NUR ---
XRY PT TO XRY VIA [facility].
[2016-05-26 10:37] LABS: POTASSIUM 2.8 MEQ/L (3.6-5); PROBNP 355 PG/ML (0-175)
--- NOTE | 2016-05-26 10:37 | NUR ---
XRY PT RETURNED.
[2016-05-26] MEDS ORDERED: POTASSIUM CHLORIDE 10 MEQ TABLET PO ONE (10:45)
[2016-05-26 11:07] LABS: EOSINOPHILS # (MANUAL) 0.1 T/MM3 (0-0.5); METAMYELOCYTES # 0.1 T/MM3; MONOCYTES # (MANUAL) 0.5 T/MM3 (0-0.8); NEUTROPHILS #(MANUAL)-ABSOLUTE 6.8 T/MM3 (1.8-7.7); TOTAL CELLS COUNTED 100 %
[2016-05-26] MEDS ORDERED: IOHEXOL 350 MG/ML 75ml INJECTION ONE (11:08)
[2016-05-26] MEDS ORDERED: SALINE FLUSH 10ml SYRINGE ONE (11:08)
[2016-05-26] MEDS ORDERED: NORMAL SALINE 100 ML ONE (11:08)
--- NOTE | 2016-05-26 11:10 | NUR ---
STATUS/MED PT REPORTS PAIN 8/10, HEADACHE. INSTRUCTED PT REGARDING TYLENOL AND KDUR ORDERED. EDUCATED PT REGARDING NEED TO EAT WITH KDUR SO WILL ADMINISTER KDUR AFTER PT RETURNS FROM CT. PT VERBALIZED UNDERSTANDING.
--- NOTE | 2016-05-26 11:12 | NUR ---
RADIOLOGY PT TO CT VIA [facility].
[2016-05-26] MEDS ORDERED: POTASSIUM CHLORIDE 20 MEQ TABLET PO ONE (11:15)
[2016-05-26] MEDS ORDERED: ACETAMINOPHEN 500 MG TABLET PO ONE (11:15)
[2016-05-26 11:20] LABS: BLOOD, URINE TRACE-INTACT (NEGATIVE); COLOR,URINE YELLOW (YELLOW); LEUKOCYTE ESTERASE ,URINE NEGATIVE (NEGATIVE); NITRITE,URINE NEGATIVE (NEGATIVE); UROBILINOGEN,URINE 0.2 EU/DL (NORMAL)
--- NOTE | 2016-05-26 12:14 | NUR ---
ELIMINATION UP TO BSC TO VOID. DAUGHTER HELPING PATIENT.
--- NOTE | 2016-05-26 12:24 | NUR ---
STATUS PT STATES "MY HEADACHE IS ALMOST GONE." PT STATES "I AM JUST WAITING ON RESULTS." INFORMED PT ON ROUTINE FOR RADIOLOGIST READING CT SCAN. UNDERSTANDING VERBALIZED.
--- NOTE | 2016-05-26 12:45 | NUR ---
STATUS PT REPORTS PAIN AT IV SITE, NO SWELLING, REDNESS APPRECIATED. IV FLUIDS STOPPED AT THIS TIME.
[2016-05-26] MEDS ORDERED: POTA-81 PO (13:38)
[2016-05-26 13:54] VITALS: BP 142/57; PULSE 72; RESP 20; TEMP 97.8; O2SAT 96
--- NOTE | 2016-05-26 14:03 | NUR ---
DEPART PT AMBULATORY TO LOBBY WITH FAMILY, ON HOME O2.
--- NOTE | 2016-05-26 14:03 | NUR ---
IV SITE/NUMBER CLARIFICATION PT HAD ONLY 1 IV SITE TO R WRIST DURING STAY, WHICH WAS DISCONTINUED AT 1400.
--- NOTE | 2016-05-27 14:16 | DI ---
Indication: ITS.REASON: chest pain/dyspnea PROCEDURE: CTA PULMONARY EMBOLI: Encounter: Initial Comparison: Chest x-ray from the same date and CT angiogram of the aorta dated December 16, 2011 Technique: Axial CT pulmonary angiographic phase images were performed through the chest after the administration of intravenous contrast. Coronal and Sagittal MIP reconstructed images were created and reviewed. Automated Exposure Control and Iterative Reconstruction dose reducing techniques were utilized. Contrast: Omnipaque 350 74 mL Findings: Pulmonary arteries: Exam is diagnostic to the segmental pulmonary arterial level. No filling defects identified to confirm a pulmonary embolus. Motion artifact and contrast bolus timing limits evaluation of the subsegmental pulmonary arteries. Other findings: Severe emphysema. No focal pneumonia. Subpleural areas of fibrosis and scarring. There is a new irregular opacity in the left upper lobe measuring 1.6 cm in diameter near a calcified granuloma. No other new pulmonary nodules or masses identified. The central airways are patent. No axillary or mediastinal adenopathy. Heart size is normal. No pericardial effusion. The upper abdomen shows no acute findings. Impression: 1. No pulmonary embolus. 2. New 1.6 cm left upper lobe pulmonary nodule. Recommend PET/CT for further evaluation given the emphysema present the patient is likely at high risk for lung malignancy. There is a preliminary report by [facility]. .
--- NOTE | 2016-05-27 14:28 | DI ---
INDICATION: ITS.REASON: dyspnea PROCEDURE: CHEST 2-VIEWS UPRIGHT (PA \T\ LAT) Encounter: Initial COMPARISON: Chest x-ray dated April 30, [address] dated May 26, 2016 FINDINGS: Irregular left upper lobe pulmonary nodule, better seen on CT. Significant emphysema. Stable bilateral lower lobe opacities are probably chronic. No new pneumonia identified. No pleural effusion or pneumothorax. Heart size and mediastinal contours are stable. Pulmonary vascularity appears normal Impression: 1. No pneumonia or overt congestive failure. 2. Severe emphysema. 3. Irregular left upper lobe pulmonary nodule which is suspicious for malignancy. Follow-up with PET/CT is recommended. .
== END 2016-05-26 14:03 | disposition home or self-care (01) ==
LOC: ED 09:33
DX: J45.909 Unspecified asthma, uncomplicated (principal); J44.9 Chronic obstructive pulmonary disease, unspecified; E87.6 Hypokalemia
CPT/HCPCS: 71020; 71275; 80053; 81003; 83880; 84484; 85025; 85379; 85610; 93005; 94640; 96360; 96361; 99284; A9270; J7030; J7050; Q9967